=== PATIENT | female | born 1945 | race Caucasian/White ===

== ENCOUNTER → 2018-05-10 14:04 | Outpatient (CLI) | payer MEDICARE, BC ==
[2015-07-11 08:18] VITALS: BMI 21.8
[~2018-05-10 14:04] MED LIST: BAYER CHEWABLE81 MG PO; BILBERRY100 MG PO; HYDROCODONE-APA1 TAB PO; LUTEIN20 MG PO; MULTIPLE VITAMI1 TA1 PO
--- NOTE | 2018-05-24 14:51 | ST ---
PATIENT:RAMIRO MARTINEZ MEDICAL RECORD: [id number] SEX: F LOCATION:[facility] ORDER #: ADMISSION DATE: 05/10/18 AGE OF PATIENT: 73 REFERRING PHYSICIAN: INTERPRETING PHYSICIAN: JASON QUIÑONES MD DATE OF SERVICE: 05/10/2018 PROCEDURE: Treadmill stress test. Baseline ECG is normal. Exercised for 5 minutes of Vikas protocol, maximum heart rate 150 beats per minute, greater than 95% max predicted. No ECG change of ischemia. No symptoms of ischemia. Normal blood pressure response to exercise. No arrhythmia is noted. Fair exercise tolerance for age. TRANSINT:[id number] Voice Confirmation ID: [id number] DOCUMENT ID: [id number] JASON QUIÑONES MD at 1451 CC: [id number] DICTATION DATE: 05/23/18 1412 KETTLE SKIMMER: 05/23/18 2210 [facility] CLI 05/10/[address] [address]
== END | disposition home or self-care (01) ==
LOC: D.HCCARDIO 14:04
DX: R06.09 Other forms of dyspnea (principal)

== ENCOUNTER 2019-02-01 08:00 | Outpatient (CLI) | payer MEDICARE, BC ==
[2015-07-11 08:18] VITALS: BMI 21.8
== END 2019-02-01 23:59 | disposition home or self-care (01) ==
LOC: D.MAMMO 08:00
PROVIDERS: ATTEND Family Medicine
DX: Z12.31 Encounter for screening mammogram for malignant neoplasm of breast (principal)

== ENCOUNTER → 2019-03-02 23:00 | Outpatient (CLI) | payer MEDICARE, BC ==
[2015-07-11 08:18] VITALS: BMI 21.8
== END ==
LOC: D.MAMMO 14:30
PROVIDERS: ATTEND Nurse Practitioner Family
DX: R92.8 Other abnormal and inconclusive findings on diagnostic imaging of breast (principal)

== ENCOUNTER → 2019-03-03 09:24 | Outpatient (CLI) | payer MEDICARE, BC ==
[2015-07-11 08:18] VITALS: BMI 21.8
== END | disposition home or self-care (01) ==
LOC: D.CT 09:24 → D.RT 10:00 → D.CT 10:00
PROVIDERS: ATTEND Internal Medicine Pulmonary Disease
DX: R06.09 Other forms of dyspnea (principal); R93.89 Abnormal findings on diagnostic imaging of other specified body structures

== ENCOUNTER → 2019-03-09 19:01 | Outpatient (CLI) | payer MEDICARE, BC ==
[2015-07-11 08:18] VITALS: BMI 21.8
== END | disposition home or self-care (01) ==
LOC: D.LABREF 19:01
PROVIDERS: ATTEND Internal Medicine Pulmonary Disease
DX: R93.89 Abnormal findings on diagnostic imaging of other specified body structures (principal); R92.8 Other abnormal and inconclusive findings on diagnostic imaging of breast; R06.09 Other forms of dyspnea

== ENCOUNTER 2019-04-11 09:15 | Outpatient (CLI) | payer MEDICARE, BC ==
[~2019-04-11] VITALS: Ht 162.6 cm; Wt 54.5 kg
[2019-04-11] MEDS ORDERED: LEVOTHYROXINE50 MCG PO (09:51)
[2019-04-11] MEDS ORDERED: SINGULAIR10 MG PO (09:51)
[2019-04-11] MEDS ORDERED: INCRUSE ELLI62.5 MCG INH (09:52)
[2019-04-11] MEDS ORDERED: ALBUTEROL2.5 MG/3 M INH (09:52)
[2019-04-11 09:53] LABS: APTT 27.5 SECONDS (22.8-39.4); INR 0.98 (0.85-1.17); PROTIME 12.9 SECONDS (11.6-15.0)
[2019-04-11 09:55] LABS: BASOPHILS 0.3 % (0-2); EOSINOPHILS 2.2 % (0-7); HEMATOCRIT 44.5 % (36.0-48.0); HEMOGLOBIN 14.7 g/dL (12-16); IMMATURE GRANULOCYTES 0.1 % (0-5); MCH 31.1 pg (26.0-34.0); MCV 94.3 fL (80.0-100.0); MEAN PLATELET VOLUME 8.8 fL (7.4-10.4); MONOCYTES 7.2 % (2-11); NEUTROPHILS 65.2 % (40-80); PLATELET COUNT 324 10x3/uL (130-400); RBC 4.72 10x6/uL (4.00-5.40); RDW 13.2 % (11.5-14.5); WBC 7.7 10x3/uL (4.8-10.8)
[2019-04-11 09:59] VITALS: BP 137/72; Ht 162.6 cm; Wt 54.5 kg
--- NOTE | 2019-04-11 14:07 | NUR ---
[id number] SEE POST PROCEDURE CHECKLIST FOR VITAL SIGN TRENDS. FAMILY AT BEDSIDE.
--- NOTE | 2019-04-11 14:10 | NUR ---
[id number] MSUA REARDON CRNA HERE ORDERS RECEIVED RT PAGED.
--- NOTE | 2019-04-11 15:52 | NUR ---
DC INSTRUCTIONS GIVEN TO PT. STATES UNDERSTANDING. DC'D IV CATH FULLY INTACT. PT LEFT UNIT VIA WC AT 1548
[2019-04-12 14:09] LABS: FUNGUS STAIN Final report (())
[2019-04-12 16:08] LABS: ACID FAST SMEAR Negative (()); AFB SPECIMEN PROCESSING Concentration (()); AFB SPECIMEN PROCESSING Tissue Grinding (())
== END 2019-04-11 15:47 | disposition home or self-care (01) ==
LOC: D.OPS 09:15
PROVIDERS: ATTEND Internal Medicine Pulmonary Disease
DX: J47.9 Bronchiectasis, uncomplicated (principal)

== ENCOUNTER → 2019-11-21 11:01 | Outpatient (CLI) | payer MEDICARE, BC ==
[2019-04-11 09:59] VITALS: BMI 20.6
[~2019-11-21 11:01] MED LIST changes: +ALBUTEROL2.5 MG/3 M INH; +INCRUSE ELLI62.5 MCG INH; +LEVOTHYROXINE50 MCG PO; +SINGULAIR10 MG PO
== END | disposition home or self-care (01) ==
LOC: D.LAB 11:01
PROVIDERS: ATTEND Internal Medicine Pulmonary Disease
DX: Z11.59 Encounter for screening for other viral diseases (principal)

== ENCOUNTER → 2019-11-23 09:37 | Outpatient (CLI) | payer MEDICARE, BC ==
[2019-04-11 09:59] VITALS: BMI 20.6
== END | disposition home or self-care (01) ==
LOC: D.RT 06-29 14:00
PROVIDERS: ATTEND Internal Medicine Pulmonary Disease
DX: Z11.59 Encounter for screening for other viral diseases (principal); R06.09 Other forms of dyspnea

== ENCOUNTER → 2019-11-27 12:36 | Outpatient (CLI) | payer MEDICARE, BC ==
[2019-04-11 09:59] VITALS: BMI 20.6
--- NOTE | 2019-11-29 07:58 | EC ---
PATIENT:RAMIRO MARTINEZ DATE OF SERVICE: 11/27/19 SEX: F MEDICAL RECORD: [id number] DATE OF : 47 LOCATION:[facility] AGE OF PATIENT: 74 ADMISSION DATE: 11/27/19 REFERRING PHYSICIAN: INTERPRETING PHYSICIAN: JASON QUIÑONES MD ECHOCARDIOGRAM REPORT ECHO CHARGES 4 ECHO COMPLETE Date: 11/27/19 CLINICAL DIAGNOSIS: HEART MURMUR ECHOCARDIOGRAPHIC MEASUREMENTS (adult normal given) AC root (d.<3.7cm) 2.7 cm LV Septum d (<1.2 cm> 0.80 cm Valve Excursion 1.5 cm LV Septum (systole) 1.1 cm Left Atria (s.<4.0cm> 2.9 cm LVPW d(<1.2cm) 1.1 cm RV (d.<2.3cm) 2.6 cm LVPW (sytole) 1.4 cm LV diastole(<5.6CM) 3.9 cm MV E-F(>70mm/sec) cm LV systole 2.5 cm LVOT Diameter 1.8 cm MV exc.(>10mm) 1.2 cm Est.ejection fraction (50-75%) % DOPPLER: LVIT cm/sec A 111.0cm/sec E 85.0 cm/sec LA cm/sec RVSP 28 mmHg LVOT 61 cm/sec AOP1/2T m/s Asc. Ao 107 cm/sec RVOT 58 cm/sec RA cm/sec PA 67 cm/sec AV Gradient Peak 4.57 mmHg AV Mean 2.32 mmHg AV Area 1.5 cm MV Gradient Peak 5.58 mmHg MV Mean 2.10 mmHg MV Area cm COMMENTS: Email Operations Manager: 2 JOSEPHINE TERAN Outside Sales Professional: 3 Dr. Murphy TAPE# PACS Pericardial Effusion N DATE OF SERVICE: Adequate 2D, color flow imaging, spectral Doppler, and M-Mode. No LVH. LV internal dimension is normal. Wall motion is normal. EF is greater than or equal to 55%. Aortic valve is tricuspid. No evidence of stenosis by Doppler interrogation. Left atrium is normal. Mitral valve shows no prolapse. Trace MR. Right-sided chambers are grossly normal. Trace TR. TRANSINT:[id number] Voice Confirmation ID: [id number] DOCUMENT ID: [id number] ECHOCARDIOGRAM REPORT [id number] RAMIRO MARTINEZ GREGORY A MD at 0758 CC: [id number] DICTATION DATE: 11/28/19 1546 SPECIAL INSPECTOR: 11/28/19 2135 [facility] CLI 11/27/19 [id number] [place] [address]
== END | disposition home or self-care (01) ==
LOC: D.HCCECHO 12:36
PROVIDERS: ATTEND Internal Medicine Interventional Cardiology
DX: I20.9 Angina pectoris, unspecified (principal); I65.29 Occlusion and stenosis of unspecified carotid artery